=== PATIENT | male | born 1975 | race Caucasian/White ===

== ENCOUNTER 2021-01-03 14:40 | Outpatient (REF) | payer OTHER, SELFPAY ==
[2021-01-03 15:28] LABS: Influenza A PCR NEGATIVE (Negative); Influenza B PCR NEGATIVE (Negative); Resp Syncy Virus RNA Qual PCR NEGATIVE (Negative); SARS COV2 PCR INHOUSE NEGATIVE (Negative)
== END 2021-01-03 14:41 | disposition home or self-care (01) ==
LOC: HO.LNP 14:40
PROVIDERS: Visit Provider Internal Medicine
DX: R05 Cough (principal); R06.2 Wheezing; Z20.822 Contact with and (suspected) exposure to COVID-19
CPT/HCPCS: 0241U

== ENCOUNTER → 2021-10-12 12:18 | Outpatient (BNVA) | payer OTHER, SELFPAY | PROVIDERS: PCP Internal Medicine; Visit Provider Physician Assistant | DX: M54.50 Low back pain, unspecified (principal); R10.9 Unspecified abdominal pain | CPT/HCPCS: 71101; 72100; 99204 ==

== ENCOUNTER → 2021-10-19 13:10 | Outpatient (BNVA) | payer OTHER, SELFPAY | PROVIDERS: PCP Internal Medicine; Visit Provider Physician Assistant | DX: M54.50 Low back pain, unspecified (principal); R10.9 Unspecified abdominal pain | CPT/HCPCS: 99213 ==

== ENCOUNTER → 2021-10-24 15:27 | Outpatient (BNVA) | payer OTHER, SELFPAY | PROVIDERS: PCP Internal Medicine; Visit Provider Physician Assistant | DX: S39.012D Strain of muscle, fascia and tendon of lower back, subsequent encounter (principal); X58.XXXD Exposure to other specified factors, subsequent encounter; R10.9 Unspecified abdominal pain | CPT/HCPCS: 99213 ==

== ENCOUNTER → 2021-11-07 15:43 | Outpatient (BNVA) | payer OTHER, SELFPAY | PROVIDERS: PCP Internal Medicine; Visit Provider Physician Assistant | DX: M54.50 Low back pain, unspecified (principal); R10.9 Unspecified abdominal pain | CPT/HCPCS: 99213 ==

== ENCOUNTER 2024-03-03 09:21 | Emergency (ER) | payer OTHER, SELFPAY ==
--- NOTE | ~2024-03-03 | XR_ITS ---
STUDY: Left foot and ankle INDICATION: Injury COMPARISON: None TECHNIQUE: 2 view left ankle, 3 view left foot. FINDINGS: No fracture or dislocation. Alignment and articulations are maintained. Mortise is intact. 1.6 cm radiopaque linear metallic density identified in the lateral soft tissues of the proximal foot at the level of the calcaneus. Calcaneal spurring. XR/XR foot LT min 3V IMPRESSION: Retained foreign body proximal lateral left foot with needle.
--- NOTE | ~2024-03-03 | XR_ITS ---
STUDY: Left foot and ankle INDICATION: Injury COMPARISON: None TECHNIQUE: 2 view left ankle, 3 view left foot. FINDINGS: No fracture or dislocation. Alignment and articulations are maintained. Mortise is intact. 1.6 cm radiopaque linear metallic density identified in the lateral soft tissues of the proximal foot at the level of the calcaneus. Calcaneal spurring. XR/XR ankle LT min 3V IMPRESSION: Retained foreign body proximal lateral left foot with needle.
[2024-03-03 09:25] VITALS: BP 147/97; PULSE 77; RESP 20; TEMP 36.9; O2SAT 99; BMI 25.1
--- NOTE | 2024-03-03 10:25 | ED_ITS ---
HPI - General Adult General Chief complaint: Extremity Problem Stated complaint: L ankle injury Time Seen by Provider: 03/03/24 10:25 Source: patient Mode of arrival: ambulatory Limitations: no limitations History of Present Illness HPI narrative: Patient is a 48 year old assigned male at with a history of IVDU - now years sober, presenting to the emergency department today with left ankle pain. Patient states that he was installing a new bathtub at work when he rolled his left ankle and has been having pain ever since. Patient denies any dizziness, lightheadedness, abdominal pain, nausea, vomiting, fever, chills, blurry vision, double vision, loss of vision, chest pain, difficulty breathing, shortness of breath, back pain, night sweats, pain with urination, increased urinary frequency, increased urinary urgency, blood in his urine or stool, syncope or a near syncopal episode, bowel incontinence, bladder incontinence, bowel retention, bladder retention, or any other complaints at this time. Onset (ago): day(s) (4) Location: left and lower extremity Severity: mild Severity scale (1-10): 3 Quality: aching and dull Pain Consistency: constant Relieving factors: immobilization Exacerbating factors: movement Associated symptoms: denies other symptoms Treatments prior to arrival: none Related Data Allergies Allergy/AdvReac Type Severity Reaction Status Date / Time No Known Allergies Allergy Unverified 08/17/20 19:12 [No Known Allergies*] Review of Systems Constitutional: Constitutional: Reports no additional constitutional complaints, Denies chills, Denies fever(s) and Denies night sweats Eyes: Eyes: Reports no additional eye complaints, Denies blurry vision, Denies change in vision, Denies diplopia, Denies eye discharge, Denies loss of vision and Denies eye pain ENT: Denies dizziness Cardiovascular: Cardiovascular: Reports no additional cardiovascular complaints, Denies chest pain, Denies lightheadedness, Denies Loss of Consciousness and Denies dyspnea Respiratory: Respiratory: Reports no additional respiratory complaints and Denies dyspnea Gastrointestinal: Gastrointestinal: Reports no additional gastrointestinal complaints, Denies abdominal pain, Denies melena, Denies hematochezia, Denies change in bowel habits and Denies change in stool character Genitourinary: Genitourinary: Reports no additional male genitourinary complaints, Denies hematuria, Denies oliguria, Denies difficulty urinating, Denies dysuria, Denies urinary frequency, Denies urinary hesitancy, Denies urinary incontinence and Denies urinary urgency Musculoskeletal: Musculoskeletal: Reports no additional musculoskeletal complaints, Denies numbness and Denies tingling Comments: left ankle pain Neurologic: Denies dizziness, Denies loss of vision, Denies numbness and Denies tingling Psychiatric: Psychiatric: Reports no additional psychiatric complaints Endocrine: Endocrine: Reports no additional endocrine complaints Hematologic/Lymphatic: Hematologic/Lymphatic: Reports no additional hematol ogic/lymphatic complaints Allergic/Immunologic: Allergic/Immunologic: Reports no additional allergic/immunologic complaints [facility] Past Medical History Attestation statement: The following information was validated with the patient. Source: old records reviewed and nursing notes reviewed Social History Social History Advance Directives: No Advance Directives Information Provided: No Physical Exam ED Vital Signs: Vital Signs - 24 hr 03/03/24 09:25 Temperature 98.4 F Pulse Rate 77 Respiratory Rate 20 Blood Pressure 147/97 H Pulse Oximetry 99 Oxygen Delivery Method Room Air BMI result Body Mass Index 25.1 Const General: cooperative, no acute distress, alert and awake Nutritional Appearance: well nourished Orientation/consciousness: patient oriented x3 Limitations: no limitations HENMT Head: Yes normal to inspection and Yes atraumatic Ears: hearing grossly normal bilaterally and external ears normal General nose exam: Normal external nose present, no nasal discharge noted and no epistaxis Face and sinus: Yes normal facial exam, No abrasion and No laceration Mouth: Normal oral and palatal mucosa present, no drooling and no muffled voice Eyes General: appearance normal, both eyes and all related structures Periorbital: periorbital findings normal Eyelids: Yes eyelids normal Conjunctivae: conjunctivae normal Pupils: Equal, round and reactive pupils present EOM: EOMs intact bilaterally Neck Neck: Yes normal visual inspection, Yes full ROM and Yes no lymphadenopathy Chest Chest palpation & inspection: normal inspection of the chest Resp Effort & Inspection: normal respiratory effort and able to speak in complete sentences GI Inspection: Yes normal to inspection Neuro General: patient oriented x3 and moves all extremities Cranial nerves: Yes Equal, round and reactive pupils present Cognition (Neuro): normal cognition Motor exam (neuro): 5/5 motor strength present throughout Sensory Exam: Normal double simultaneous stimulation for sensation Coordination: [id number] test normal Extrem General: Yes normal to inspection, Yes full ROM and Yes capillary refill normal Psych Appearance: grossly normal Mental Status: mental status grossly normal Affect: normal affect Attitude: cooperative Thought process: Normal thought process present Thought content: Normal thought content present Insight: Good insight present (Psych) Procedures Orthopedic Splinting/Casting Injury #1: Side: left Lower Extremity Injury Location: ankle Lower Extremity Immobilizer: boot orthosis Other Orthopedic Equipment: crutches Medical Decision Making Medical Decision Making MDM Narrative: Patient is a 48 year old assigned male at with a history of IVUD - years sober, presenting to the emergency department today with left ankle pain. Patient's physical exam was unremarkable. Patient's left foot x-ray showed no acute process. Patient's left ankle x-ray showed no acute fracture but did show a retained foreign body consistent with a needle. Patient's clinical presentation is most consistent with a left ankle sprain with an incidental finding of a retained needle. I explained my physical exam findings as well as all test results to the patient. I answered all questions asked by the patient. Patient's left foot was placed in a boot and the patient was given crutches with crutch instructions. Patient's PMS was intact prior to and after boot placement. I stressed the importance of the patient taking his medication as prescribed. I stressed the importance of the patient following up with his primary care provider and a general surgeon for needle removal. I stressed the importance of the patient returning to the emergency department immediately if his symptoms were to worsen or if he were to develop any dizziness, shortness of breath, difficulty breathing, chest pain, blurry vision, loss of vision, nausea, vomiting, abdominal pain, fever, chills, back pain, or any other complaints. Patient verbalized agreement and understanding with this treatment plan and discharge. Differential Diagnosis Differential Diagnoses: The differential diagnosis associated with the presentation includes Retained foreign body of left ankle Left ankle sprain Left ankle strain Left ankle fracture Admission/Observation Consideration of admission/observation: Escalation of care including admission/o bservation considered Patient would have been admitted to the hospital had his work up had any findings where hospital admission was appropriate and his clinical presentation warranted hospital admission. Independent Interpretation I performed an independent interpretation of an: Plain X-Ray Interpretation: My interpretation is in agreement with the radiologist's impression of this imaging study. STUDY: Left foot and ankle INDICATION: Injury COMPARISON: None TECHNIQUE: 2 view left ankle, 3 view left foot. FINDINGS: No fracture or dislocation. Alignment and articulations are maintained. Mortise is intact. 1.6 cm radiopaque linear metallic density identified in the lateral soft tissues of the proximal foot at the level of the calcaneus. Calcaneal spurring. XR/XR foot LT min 3V IMPRESSION: Retained foreign body proximal lateral left foot with needle. Dictated By: Edwige Francis MD Signed By: Electronically signed by Edwige Francis MD 03/03/24 1004 Radiology Impression Discussion of test interpretation with radiology: I have reviewed the radiologist's reading. Discharge Plan Discharge Clinical Impression: Retained foreign body in ankle region, Ankle sprain Patient Disposition: Home, Self-Care Instructions: Ankle Sprain (DC), Soft Tissue Foreign Body (ED) Additional Instructions: Given this was a work injury, you should follow up with [facility]. Follow up with your primary care provider and a general surgeon. Return to the emergency department immediately if your symptoms worsen or if you develop any d izziness, shortness of breath, difficulty breathing, chest pain, blurry vision, loss of vision, nausea, vomiting, abdominal pain, fever, chills, back pain, or any other complaints. Referrals: [facility] [place] [facility] [place] Group] (Call to establish and follow up with a general surgeon for removal of the needle in your left ankle. ) [facility] [Provider Group] (Given this was a work place injury, please follow up with them.) Luis Hamilton MD [Primary Care Provider] - Stand Alone Forms: Work/School Release Print Language: Sammarinese
[2024-03-03 11:28] VITALS: BP 147/97; PULSE 77; RESP 18; TEMP -17.7; TEMP 0; O2SAT 99
== END 2024-03-03 11:29 | disposition home or self-care (01) ==
PROVIDERS: Emergency Provider Emergency Medicine; PCP Internal Medicine
DX: S93.402A Sprain of unspecified ligament of left ankle, initial encounter (principal); M79.5 Residual foreign body in soft tissue; X50.1XXA Overexertion from prolonged static or awkward postures, initial encounter; Y93.89 Activity, other specified; Y92.89 Other specified places as the place of occurrence of the external cause; Y99.0 Civilian activity done for income or pay
CPT/HCPCS: 73610; 73630; 99282; 99283

== ENCOUNTER 2024-03-04 16:48 | Emergency (ER) | payer OTHER, SELFPAY ==
--- NOTE | ~2024-03-04 | XR_ITS ---
EXAMINATION: XR LUMBOSACRAL SPINE CLINICAL INFORMATION: Low back pain COMPARISON: 10/12/2021 TECHNIQUE: Three views of the lumbosacral spine. FINDINGS: The lumbar vertebra remain normal normal in height. No vertebral compression fractures. Chronic bilateral pars defects of L5, moderate loss of L5-S1 disc space and grade 2 anterolisthesis of L5 on S1. There appears to be slight worsening of the degenerative loss of disc height at L5-S1 compared to 10/12/2021. Otherwise, the intervertebral disc spaces are well-preserved in the lumbar spine. Small anterior vertebral traction osteophytes are present at L3-L4. No suspicious bone lesions. Sacrum and sacroiliac joints are intact. XR/XR lumbar spine 2-3V IMPRESSION: Chronic L5 spondylolysis, mild worsening L5-S1 disc degenerative change and grade 2 anterolisthesis of L5 on S1.
--- NOTE | 2024-03-04 16:56 | ED_ITS ---
HPI - General Adult General Chief complaint: General Medical Stated complaint: back abd pain,dizziness seen yesterday Time Seen by Provider: 03/04/24 21:12 Source: patient Mode of arrival: ambulatory Limitations: no limitations History of Present Illness HPI narrative: Patient with Multiple nonspecific complaints was seen here yesterday for left foot pain noticed to have a needle which she does not remember when this happened was seen here yesterday x-ray showed a needle no skin break the patient also complaining of low back pain taking methadone visual changes for last 2 years has not seen any doctor Related Data Previous Rx's ?Medication ?Instructions ?Recorded naproxen 500 mg tablet (Naprosyn) 500 mg PO BID PRN pain #30 tabs 03/04/24 Allergies Allergy/AdvReac Type Severity Reaction Status Date / Time No Known Allergies Allergy Verified 03/04/24 17:03 [No Known Allergies*] Review of Systems 2 Review of Systems: Yes all other systems are reviewed and are negative PMFSH Social History Social History Advance Directives: No Advance Directives Information Provided: No Physical Exam ED Vital Signs: Vital Signs - 24 hr 03/04/24 16:58 03/04/24 20:59 03/04/24 21:49 Temperature 99.8 F 98.4 F 97.9 F Pulse Rate 78 55 57 Respiratory Rate 16 16 16 Blood Pressure 153/112 H 136/93 H 153/87 H Pulse Oximetry 97 98 Oxygen Delivery Method Room Air Room Air Room Air 03/04/24 23:22 Temperature 97.9 F Pulse Rate 57 Respiratory Rate 16 Blood Pressure 153/87 H Pulse Oximetry 98 Oxygen Delivery Method Room Air BMI result Body Mass Index 23.6 Appearance: Alert. Oriented X3. No acute distress. Eyes: PERRLA, No Nystagmus normal fundus ENT: Pharynx normal. Oral Mucosa moist Neck: Normal inspection. Neck supple. CVS: Normal heart rate and rhythm. Pulses normal. Respiratory: No respiratory distress. Equal air entry bilateral, no wheezing/rales/rhonchi Abdomen: Soft and nontender. Bowel sounds are present, no mass palpable, no CVA tenderness Skin: Skin warm and dry. Normal skin color. Normal skin turgor. back: Diffuse tenderness Extremities: No lower extremity edema. No calf tenderness tenderness at lateral aspect of left ankle no signs of infection no signs of fresh wound Neuro: Oriented X 3. No motor deficit. No sensory deficit.No cerebellar signs , cranial nerves II-XII intact Course Course Course Narrative: RME:?48 yo male w/ hx opioid abuse on methadone 40mg daily x5 mos, here with multiple complaints. endorses abdominal, back pain, nausea, vomiting x1 week. no known sick contacts. Additionally endorses vision changes like looking through a kaleidoscope. He had an appointment with Dr. Hamilton yesterday however canceled it and came here for eval instead. No hx of abdominal surgeries. Hx of cortisone injections in back (10-15) yrs ago. History is hard to follow. record reports pt is IVDU, he is currently denying this. denies fever, chills, constipation, diarrhea, dysuria, flank pain, hematuria. labs, serology, imaging ordered. Full HPI, ROS and PE to be performed by the primary ED provider. Medical Decision Making Medical Decision Making [facility] Narrative: Patient has multiple complaints was seen here yesterday on methadone chronic low back advised to follow with PCP patient has a plan to see PCP next week Lab Data [facility] Lab Attestation statement: I reviewed the patient's lab results. 03/04/24 17:19 03/04/24 17:19 Labs: Lab Results 03/04/24 Range/Units 17:19 WBC 7.0 (4.8-10.8) X10*3/uL RBC 5.05 (4.60-5.80) X10*6/uL Hgb 14.9 (14.0-18.0) g/dl Hct 43.9 (42.0-52.0) % MCV 86.9 (80.0-98.0) fL MCH 29.5 (27.0-33.0) pg MCHC 33.9 (31.0-36.0) g/dl RDW 11.5 (11.0-16.0) % Plt Count 334 (160-400) X10*3/uL MPV 8.6 L (9.4-12.4) fL Immature Gran % (Auto) 0.3 (0.0-0.4) % Neut % (Auto) 78.6 H (45-73) % Lymph % (Auto) 15.1 L (20-40) % Hartley % (Auto) 5.6 (2-11) % Eos % (Auto) 0.0 (0-4) % Baso % (Auto) 0.4 (0-2) % Lymph # (Auto) 1.1 L (1.2-4.9) X10*3/uL Hartley # (Auto) 0.4 (0.1-1.2) X10*3/uL Eos # (Auto) 0.0 (0.0-0.4) X10*3/uL Baso # (Auto) 0.0 (0.0-0.2) X10*3/uL Abs Immat Gran (auto) 0.02 (0.00-0.03) X10*3/uL Absolute Neuts (auto) 5.5 (2.0-8.3) x10*3/uL Absolute Nucleated RBC 0.000 (0.0-0.012) X10*3/uL Nucleated RBC % (auto) 0.0 (0.0-0.2) /100WBC Sodium 139 (135-145) mmol/L Potassium 3.9 (3.3-5.1) mmol/L Chloride 104 (96-108) mmol/L Carbon Dioxide 27 (22-29) mmol/L Anion Gap 12 (12-20) BUN 7 L (9-16) mg/dL Creatinine 0.90 (0.5-1.4) mg/dL Estim Creat Clear Calc 108.9 Estimated GFR > 60 Random Glucose 126 H (60-115) mg/dL Calcium 9.5 (8.4-10.2) mg/dL Total Bilirubin 0.4 (0.0-1.0) mg/dL AST 21 (5-37) U/L ALT 20 (0-40) U/L Alkaline Phosphatase 48 (39-117) U/L Total Protein 7.2 (6.5-8.0) g/dL Albumin 4.2 (3.5-5.0) g/dL Lipase 18 (8-78) U/L Influenza Type A (PCR) NEGATIVE (Negative) Influenza Type B (PCR) NEGATIVE (Negative) RSV RNA Qual (PCR) NEGATIVE (Negative) SARS-CoV-2 RNA (RT-PCR) NEGATIVE (Negative) Discharge Plan Discharge Clinical Impression: Chronic pain Patient Disposition: Home, Self-Care Instructions: Chronic Pain (ED) Additional Instructions: Continue methadone Follow with eye doctor and PCP Follow-up with orthopedics if the pain continues in the left foot for the foreign body removal Prescriptions: New naproxen [Naprosyn] 500 mg tablet 500 mg PO BID PRN (Reason: pain) Qty: 30 0RF Referrals: Cyrus Napier MD [Physician] - 2 weeks Hans Vazquez [Physician] - 2 weeks Interventions: ED Discharge Assessment Last Done: 03/04/24 23:22 Discharge Date/Time: 03/04/24 22:30 Print Language: Niuean
[2024-03-04 16:58] VITALS: BP 153/112; PULSE 78; RESP 16; TEMP 37.7; BMI 23.6
[2024-03-04 17:28] LABS: MANUAL DIFF FLAG NO
[2024-03-04 17:37] LABS: Basophils Percent Auto 0.4 % (0-2); Hematocrit 43.9 % (42.0-52.0); Hemoglobin 14.9 g/dl (14.0-18.0); Imm Gran Abs Auto 0.02 X10*3/uL (0.00-0.03); Imm Gran Pct Auto 0.3 % (0.0-0.4); Lymphocytes Absolute Auto 1.1 X10*3/uL (1.2-4.9); Lymphocytes Percent Auto 15.1 % (20-40); Mean Corpuscular HGB Conc 33.9 g/dl (31.0-36.0); Mean Corpuscular Hemoglobin 29.5 pg (27.0-33.0); Mean Corpuscular Volume 86.9 fL (80.0-98.0); Mean Platelet Volume 8.6 fL (9.4-12.4); Monocytes Absolute Auto 0.4 X10*3/uL (0.1-1.2); Monocytes Percent Auto 5.6 % (2-11); Neutrophils Absolute Auto 5.5 x10*3/uL (2.0-8.3); Neutrophils Percent Auto 78.6 % (45-73); Platelet Count 334 X10*3/uL (160-400); Red Blood Count 5.05 X10*6/uL (4.60-5.80); Red Cell Distribution Width 11.5 % (11.0-16.0)
[2024-03-04 17:50] LABS: Alanine Aminotransferase 20 U/L (0-40); Albumin Level 4.2 g/dL (3.5-5.0); Alkaline Phosphatase 48 U/L (39-117); Anion Gap 12 (12-20); Aspartate Amino Transferase 21 U/L (5-37); Bilirubin Total 0.4 mg/dL (0.0-1.0); Blood Urea Nitrogen 7 mg/dL (9-16); Calcium 9.5 mg/dL (8.4-10.2); Carbon Dioxide 27 mmol/L (22-29); Chloride 104 mmol/L (96-108); Creatinine Clr Calc Pharmacy 108.9; Estimated Glomerular Filt Rate > 60; Glucose Random 126 mg/dL (60-115); Lipase 18 U/L (8-78); Potassium 3.9 mmol/L (3.3-5.1); Sodium 139 mmol/L (135-145); Total Protein 7.2 g/dL (6.5-8.0)
[2024-03-04 18:28] LABS: Influenza A PCR NEGATIVE (Negative); Influenza B PCR NEGATIVE (Negative); Resp Syncy Virus RNA Qual PCR NEGATIVE (Negative); SARS COV2 PCR INHOUSE NEGATIVE (Negative)
[2024-03-04 20:59] VITALS: BP 136/93; PULSE 55; RESP 16; TEMP 36.9; O2SAT 97
[2024-03-04 21:49] VITALS: BP 153/87; PULSE 57; RESP 16; TEMP 36.6; O2SAT 98
[2024-03-04 23:22] VITALS: BP 153/87; PULSE 57; RESP 16; TEMP 36.6; O2SAT 98
== END 2024-03-04 22:30 | disposition home or self-care (01) ==
PROVIDERS: Physician Assistant Medical; Emergency Provider Internal Medicine; PCP Internal Medicine
DX: M54.50 Low back pain, unspecified (principal); R42 Dizziness and giddiness; M79.672 Pain in left foot; M79.10 Myalgia, unspecified site; Z11.52 Encounter for screening for COVID-19; Z20.822 Contact with and (suspected) exposure to COVID-19; Z79.899 Other long term (current) drug therapy
CPT/HCPCS: 0241U; 36415; 72100; 80053; 83690; 85025; 99283

== ENCOUNTER 2024-03-09 13:38 | Outpatient (AMB) | payer OTHER, SELFPAY ==
[2024-03-09 13:43] VITALS: BP 158/99; PULSE 73; BMI 23.1
--- NOTE | 2024-03-09 13:43 | MHC.OFFVIS ---
Intake Vital Signs 03/09/24 13:43 Height 6 ft Weight 170 lb BMI 23.1 BP 158/99 H Blood Pressure Location Rt brachial Position Sitting Pulse 73 Intake Visit Reasons: Retained foreign body in ankle region Intake Note: Patient referred after ER visit on 03-03-24. Per X-ray incidental finding of foreign body/ needle on Lt ankle. Patient c/o: Lt foot pain after installing bathtub. Patient was diagnosed with ankle sprain. Water Tender Required: No Accompanied by: Friend Allergies No Known Allergies [No Known Allergies*] Allergy (Verified 03/09/24 13:45) HPI HPI Comments History of Present Illness Details Patient presents with a significant other. Sometime ago, patient has sustained a needle in his left ankle and has become much more symptomatic over the last week and a half's time. Recently seen in the emergency department and was referred here. X-ray confirms the needle type foreign body in his left lateral ankle. Chart was reviewed patient evaluated [facility] Medical History (Updated 03/09/24 @ 13:47 by ALESSANDRA Nelson) Hx of basal cell carcinoma Social History (Updated 03/09/24 @ 13:47 by ALESSANDRA Nelson) Tobacco use type: Cigarette Cigarettes Per Day: 5 Physical Exam Vital Signs: Last Vital Signs Pulse 73 03/09/24 13:43 BP 158/99 H 03/09/24 13:43 BMI result Body Mass Index 23.1 Chest Other: Chest breath sounds bilaterally, HS 1 in 2 GI Other: Abdomen is soft, benign Extrem Other: Left lower extremity grossly neurovascularly intact. Limited movement secondary to patient's pain from needle foreign body nearly lateral malleolus. Assessment & Plan Assessment & Plan (1) Foreign body (FB) in soft tissue: Code(s): M79.5 - Residual foreign body in soft tissue Plan Risks, benefits, alternatives of removal of foreign body with fluoroscopic guidance were reviewed with the patient and his significant other and included but not limited to bleeding, infection, failure to retrieved the needle, numbness, pain, scarring the patient wished to proceed. All questions answered. Arrangements made for this. Coding Level of Care Code New Pt Level 5 (38571) Diagnoses Foreign body (FB) in soft tissue M79.5
== END 2024-03-09 13:55 | disposition home or self-care (01) ==
PROVIDERS: PCP Internal Medicine; Visit Provider Surgery
DX: M79.5 Residual foreign body in soft tissue (principal)
CPT/HCPCS: 99204

== ENCOUNTER → 2024-03-09 13:38 | Outpatient (BNVA) | payer OTHER, SELFPAY | PROVIDERS: PCP Internal Medicine; Visit Provider Surgery | DX: M79.5 Residual foreign body in soft tissue (principal) | CPT/HCPCS: 99202 ==

== ENCOUNTER 2024-03-11 09:26 | Day surgery (SDC) | payer OTHER, SELFPAY ==
--- NOTE | 2024-03-10 15:05 | MHC.SHP ---
Pre-Procedural Eval Section A - 24 Hr Update-Section A only Date of Service: 03/10/24 The patient is an INPATIENT: No Changes since office visit: No Cold of Flu in the past 2 weeks, No New Medical Problems, No Changes in Medication and No Patient answered all questions Section B - Complete if H&P > 30 days Chief Complaint: Residual foreign body in soft tissue Allergies: Allergies Allergy/AdvReac Type Severity Reaction Status Date / Time No Known Allergies Allergy Verified 03/09/24 13:45 [No Known Allergies*] Plan I have reviewed the history and physical and performed a pertinent physical examination on my patient. No changes have occurred unless specified. Time Spent With Patient Time: Total time managing care of this patient today ____ minutes.
--- NOTE | ~2024-03-11 | FL_ITS ---
EXAMINATION: XR FLUOROSCOPY WITH IMAGES CLINICAL INFORMATION: Removal left ankle foreign body. COMPARISON: Radiographs dated 03/03/2024. TECHNIQUE: Fluoroscopy Supervised By: Dr. Kunal Sorenson. Fluoroscopy Time: 232.85 seconds. Cumulative Dose: 7.7585 mGy. DAP: 0.4689 Gycm2. Images: 3. FINDINGS: The submitted images document localization and removal of a linear metallic foreign body from the dorsal soft tissues of the proximal left foot. FL/FL guidance in OR IMPRESSION: Intraoperative fluoroscopic guidance is provided during left ankle for body removal. Please see the patient's Operative Report for full procedural details.
[2024-03-11 09:42] VITALS: BMI 23.2
[2024-03-11 09:45] VITALS: BP 130/94; PULSE 67; RESP 16; TEMP 36.6; O2SAT 98
--- NOTE | 2024-03-11 10:03 | HO.ANESPROP2 ---
HPI - Anesthesia Eval Consult details Narrative: for forgein body removal PMFSH Active Problems Active Problems: All Active Problems Foreign body (FB) in soft tissue (Acute) Past Medical History Medical History Hx of basal cell carcinoma Family History Family history of problems with anesthesia: No Surgical History History of Problems with Anesthesia: No Social History Social History Tobacco use type: Cigarette Cigarettes Per Day: 5 Advance Directives: No Advance Directives Information Provided: Yes Meds Allergies Allergy/AdvReac Type Severity Reaction Status Date / Time No Known Allergies Allergy Verified 03/11/24 09:36 [No Known Allergies*] Active Medications: Current Medications Acetaminophen (Ofirmev) 1,000 mg in 100 mls @ 400 mls/hr IV PREOP ONE Stop: 03/11/24 10:05 Home Medications ?Medication ?Instructions ?Recorded ?Confirmed ?Last Taken ?Type methadone 5 mg/5 mL oral solution 50 mg PO DAILY 03/09/24 03/11/24 03/11/24 07:30 History Exam Height,Weight and Vital Signs: Height 6 ft 0.25 in Weight 78.018 kg Airway Mallampati Class: II TM Dist: >3cm Neck ROM: Full Heart: rrr Lungs: cta Assessment and Plan Assessment Anesthesia Assessment: Anesthesia Plan Discussed and Chart Reviewed Final Anesthetic Review Family History of Problems with Anesthesia: No History of Problems with Anesthesia: No NPO: Yes ASA Class: III Final Preanesthetic Review: No Changes in Pt Med Stat, Meds/Allgs Chart Reviewed, Consent Obtained/Reviewed and Anes Risks/Benef Reviewed Patient Risk: Intermediate Procedure Risk: Low Anesthetic Plan Anesthetic Plan: GA Disposition: Standard PACU
[2024-03-11 11:30] VITALS: BP 105/73; PULSE 45; RESP 14; TEMP 36.2; O2SAT 98
--- NOTE | 2024-03-11 11:31 | W.PM.OPN ---
Operative Note Operative Note Date of Service: 03/11/24 Narrative: Preoperative diagnosis: [] Foreign body/ needle left lateral ankle Postop diagnosis: [] The same Procedure [] removal of foreign body left ankle soft tissue with fluoroscopy Surgeon: [] Delta Commission Auditor: [] Ghislaine Anesthesia; LMA Indication for surgery: [] Symptomatic needle/foreign body left lateral ankle Findings: [] Patient brought to the operating room, placed on operative table in supine position, after adequate level of LMA anesthesia was induced, the left ankle and foot area were prepped and draped circumferentially in usual sterile fashion. Using fluoroscopic guidance, incision was made in the left lateral ankle just below lateral to the lateral malleolus over the foreign body/needle in question. Using a tonsil clamp, the foreign body was removed uneventfully and specimen sent to pathology. Pre and postprocedure films demonstrated the foreign body complete removed. Wound was irrigated, secured hemostasis, and closed using interrupted inverted dermal 3-0 Vicryl sutures followed by Steri-Strips and sterile dressing and wrapped. Wound was infiltrated at the beginning at the end with 1% lidocaine/0.5% Marcaine. Sponge, needle, and instrument counts reported correct. Patient tolerated the procedure well and emerged from anesthesia stable condition. EBL minimal
[2024-03-11 11:45] VITALS: BP 106/74; PULSE 41; RESP 16; O2SAT 96
[2024-03-11 12:00] VITALS: BP 103/75; PULSE 45; RESP 16; TEMP 36.1; O2SAT 97
== END 2024-03-11 13:00 | disposition home or self-care (01) ==
PROVIDERS: PCP Internal Medicine; Visit Provider Surgery
PROC: (CPT 28190; principal; 2024-03-11 11:00)
DX: M79.5 Residual foreign body in soft tissue (principal); F11.20 Opioid dependence, uncomplicated; Z85.828 Personal history of other malignant neoplasm of skin; F17.210 Nicotine dependence, cigarettes, uncomplicated
CPT/HCPCS: 28190; 88300; J0131; J0690; J2704; J2795

== ENCOUNTER → 2024-03-11 09:26 | Outpatient (BNV) | payer OTHER, SELFPAY | PROVIDERS: PCP Internal Medicine; Visit Provider Surgery | DX: S90.551A Superficial foreign body, right ankle, initial encounter (principal) | CPT/HCPCS: 28190 ==

== ENCOUNTER 2024-03-22 11:44 | Outpatient (AMB) | payer OTHER, SELFPAY ==
--- NOTE | 2024-03-22 11:47 | MHC.OFFVIS ---
Intake Visit Reasons: S/P foreign body Lt ankle w/fluoroscopy Intake Note: Patient here s/p Lt ankle guidance fluoroscopy. Reports incision healing well. Patient c/o: tenderness. Denies redness, oozing. Patient not wearing shoes as they feel uncomfortable. 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 He has no wound issues or complaints. PFSH Medical History Hx of basal cell carcinoma Social History Patient Tobacco Use Status: Current everyday Tobacco user Tobacco use type: Cigarette Cigarettes Per Day: 5 Physical Exam Extrem Other: Left ankle wounds clean dry and intact healing uneventfully Assessment & Plan Assessment & Plan (1) Postop check: Code(s): Z09 - Encounter for follow-up examination after completed treatment for conditions other than malignant neoplasm Category: Surgical Plan Patient has been given local instructions, and will follow-up p.r.n.. All questions answered.
== END 2024-03-22 11:49 | disposition home or self-care (01) ==
LOC: HO.HGS 11:44
PROVIDERS: PCP Internal Medicine; Visit Provider Surgery
DX: Z09 Encounter for follow-up examination after completed treatment for conditions other than malignant neoplasm (principal)
CPT/HCPCS: 99024

== ENCOUNTER → 2024-03-22 11:44 | Outpatient (BNVA) | payer OTHER, SELFPAY | PROVIDERS: PCP Internal Medicine; Visit Provider Surgery | DX: Z09 Encounter for follow-up examination after completed treatment for conditions other than malignant neoplasm (principal); Z98.890 Other specified postprocedural states | CPT/HCPCS: 99212 ==

== ENCOUNTER 2024-03-24 12:15 | Outpatient (REF) | payer OTHER, SELFPAY ==
[2024-03-24 13:25] LABS: Estimated Average Glucose 114 mg/dL; Hemoglobin A1c % 5.6 % (<6.0)
[2024-03-24 13:50] LABS: C Reactive Protein 0.91 mg/dL (< or = 0.50); Cholesterol 257 mg/dL (<200); Glucose Random 98 mg/dL (60-115)
[2024-03-24 14:14] LABS: Vitamin B12 317 pg/mL (200-900)
[2024-03-24 15:18] LABS: Appearance Urine Clear; Color Urine Yellow; Glucose Urine UA Negative (Negative); Leukocyte Esterase Urine Negative (Negative); Nitrite Urine Negative (Negative); Specific Gravity - Urine 1.025 (1.005-1.025); Urine Blood Negative (Negative); Urine Ketones Negative (Negative); Urine Protein Negative (Neg-Trace)
[2024-03-24 15:46] LABS: Creatinine Urine 170.12 mg/dL; Microalbum/Creatinine Ratio Ur 2.9 ug/mg cr (<30)
== END 2024-03-24 12:16 | disposition home or self-care (01) ==
LOC: HO.LAB 12:15
PROVIDERS: PCP Internal Medicine; Visit Provider Internal Medicine
DX: R73.03 Prediabetes (principal); R10.9 Unspecified abdominal pain; M79.606 Pain in leg, unspecified
CPT/HCPCS: 36415; 81003; 82043; 82465; 82570; 82607; 82947; 83036; 86140